=== PATIENT | female | born 1940 | race Caucasian/White ===

== ENCOUNTER → 2016-11-15 | Outpatient (CLI) | payer MEDICARE, BC ==
--- NOTE | 2016-11-16 11:43 | MM ---
Reason for exam: screening (asymptomatic). Last mammogram was performed 1 year and 1 month ago. History: Patient is postmenopausal. Physical Findings: A clinical breast exam by your physician is recommended on an annual basis and results should be correlated with mammographic findings. MG 3D Screening Mammo W/Cad Bilateral CC and MLO view(s) were taken. Prior study comparison: October 15, 2015, bilateral MG screening mammo w CAD. November 11, 2013, bilateral digital screening mammo w/CAD. There are scattered fibroglandular densities. No significant changes when compared with prior studies. ASSESSMENT: Benign, BI-RAD 2 RECOMMENDATION: Routine screening mammogram of both breasts in 1 year.
== END | disposition home or self-care (01) ==
LOC: RADMAMWWP 12:35
PROVIDERS: ATTEND Family Medicine
DX: Z12.31 Encounter for screening mammogram for malignant neoplasm of breast (principal)
CPT/HCPCS: 77063; G0202

== ENCOUNTER → 2017-11-16 | Outpatient (CLI) | payer MEDICARE, BC ==
--- NOTE | 2017-11-16 16:33 | BD ---
EXAMINATION TYPE: MG DEXA axial skeleton. DATE OF EXAM: 11/16/2017 CLINICAL HISTORY: 77-year-old female osteoporosis, postmenopausal screening Height: 64 inches Weight: 170 FRAX RISK QUESTIONS: Alcohol (3 or more units per day): no Family History (Parent hip fracture): no Glucocorticoids (More than 3mos): topical steroid cream on & off for over 30 years (Ex: prednisone, prednisolone, methylprednisolone, dexamethasone, and hydrocortisone). History of Fracture in Adulthood: no Secondary Osteoporosis: 1. Type 1 Diabetes: no 2. Hyperthyroidism: no 3. Menopause before 45: no 4. Malnutrition: no 5. Chronic liver disease: no Rheumatoid Arthritis: no Current Tobacco Use: no RISK FACTORS HISTORY OF: Family History of Osteoporosis: not documented Active: yes Diet low in dairy products/other sources of calcium: no Postmenopausal woman: yes Take estrogen and/or progesterone medications: no Lost more than 2 inches in height since high school: no Frequent falls: no Poor Health: no Hyperparathyroidism: no Adrenal Insufficiency: no MEDICATIONS: Prednisone or other steroids: topical steroids on & off How Long: over 30 years Thyroid Medications: yes Which medication: Synthroid How Long: over 40 years Osteoporosis Medications: no Additional Medications: Vitamin D & Calcium Additional History: right knee replacement EXAM MEASUREMENTS: Bone mineral densitometry was performed using the [employer] System. Bone mineral density as measured about the Lumbar spine is: ----- L1-L4(G/cm2): 0.981 T Score Values are as follows: ----- L2: -1.7 ----- L3: -1.5 ----- L4: -2.0 ----- L1-L4: -1.7 Bone mineral density has: Decreased -6.3% since study of: 11/11/2013 Bone mineral density about the R hip (g/cm2): 0.755 Bone mineral density about the L hip (g/cm2): 0.792 T Score values are as follows: -----R Neck: -2.0 -----L Neck: -1.8 -----R Total: -1.1 -----L Total: -0.5 Bone mineral density has: Decreased -4.7% since study of: 11/11/2013 IMPRESSION: Osteopenia (T Score between -2.5 and -1). There is slightly increased risk of fracture and the patient may be considered for treatment. Re-Screen 2-5 years. NOTE: T-SCORE=SD OF THE YOUNG ADULT MEAN.
--- NOTE | 2017-11-17 11:37 | MM ---
Reason for exam: screening (asymptomatic). Last mammogram was performed 1 year ago. History: Patient is postmenopausal. Physical Findings: A clinical breast exam by your physician is recommended on an annual basis and results should be correlated with mammographic findings. MG 3D Screening Mammo W/Cad Bilateral CC and MLO view(s) were taken. Prior study comparison: November 15, 2016, bilateral MG 3d screening mammo w/cad. October 15, 2015, bilateral MG screening mammo w CAD. The breast tissue is heterogeneously dense. This may lower the sensitivity of mammography. No significant changes when compared with prior studies. ASSESSMENT: Benign, BI-RAD 2 RECOMMENDATION: Routine screening mammogram of both breasts in 1 year.
== END | disposition home or self-care (01) ==
LOC: RADMAMWWP 12:44
PROVIDERS: ATTEND Family Medicine
DX: Z12.31 Encounter for screening mammogram for malignant neoplasm of breast (principal); M85.80 Other specified disorders of bone density and structure, unspecified site
CPT/HCPCS: 77063; 77067; 77080

== ENCOUNTER → 2018-02-26 | Outpatient (CLI) | payer MEDICARE, BC ==
--- NOTE | 2018-02-26 12:54 | XR ---
EXAMINATION TYPE: XR spine complete AP and Lat DATE OF EXAM: 02/26/2018 COMPARISON: NONE HISTORY: 77-year-old female back pain, arthritic pain from upper back and tailbone area for a few mon ths. Dorsalgia. TECHNIQUE: 10 views FINDINGS: Cervical spine: No predental space widening or prevertebral soft tissue swelling. Alignment is maintained. Normal odo ntoid view. Scattered facet and uncovertebral joint uropathy throughout. Thoracic spine: 12 rib-bearing thoracic vertebral bodies. Moderate endplate spondylosis especially in the mid thoraci c spine with accentuated thoracic kyphosis here. There is endplate sclerosis and some vacuum phenomen on with disc space narrowing. Vertebral body heights are maintained. Alignment is preserved. Lumbar spine: 5 lumbar type vertebral bodies. There is a grade 2 anterolisthesis at L4-L5 and facet arthropathy mid to lower lumbar spine. Moderate degenerative disc interspace narrowing at L4-L5. Vertebral body heig hts are maintained. IMPRESSION: 1. Cervical spine: Mild to moderate uncovertebral joint and facet arthropathy. No malalignment. 2. Thoracic spine: Moderate disc/endplate degenerative change especially in the mid thoracic spine wi th an accentuated kyphosis. No vertebral compression collapse or malalignment. 3. Lumbar spine: Grade 2 anterolisthesis at L4-L5. This could be on a degenerative basis or secondary to bilateral L4 pars defects. Facet arthropathy mid to lower lumbar spine and moderate degenerative disc disease L4-L5. No vertebral compression collapse.
== END ==
LOC: RADXRMAIN 10:31
PROVIDERS: ATTEND Nurse Practitioner
DX: M43.16 Spondylolisthesis, lumbar region (principal); M51.36 Other intervertebral disc degeneration, lumbar region; M46.92 Unspecified inflammatory spondylopathy, cervical region; M46.96 Unspecified inflammatory spondylopathy, lumbar region; M40.294 Other kyphosis, thoracic region
CPT/HCPCS: 72082

== ENCOUNTER → 2018-12-10 | Outpatient (CLI) | payer MEDICARE, BC ==
--- NOTE | 2018-12-10 11:36 | US ---
EXAMINATION TYPE: US carotid duplex BILAT DATE OF EXAM: 12/10/2018 COMPARISON: NONE CLINICAL HISTORY: 78-year-old female R41.3 amnesia. TECHNIQUE: Carotid duplex ultrasound examination. Indirect Doppler criteria was utilized. FINDINGS: EXAM MEASUREMENTS: RIGHT: Peak Systolic Velocity (PSV) cm/sec ----- Right CCA: 79.8 ----- Right ICA: 80.5 ----- Right ECA: 101.2 ICA/CCA ratio: 1.0 RIGHT: End Diastole cm/sec ----- Right CCA: 16.5 ----- Right ICA: 24.8 ----- Right ECA: 15.4 LEFT: Peak Systolic Velocity (PSV) cm/sec ----- Left CCA: 94.7 ----- Left ICA: 100.0 ----- Left ECA: 95.0 ICA/CCA ratio: 1.1 LEFT: End Diastole cm/sec ----- Left CCA: 24.6 ----- Left ICA: 30.9 ----- Left ECA: 14.6 VERTEBRALS (direction of flow): Right Vertebral: Antegrade Left Vertebral: Antegrade Rhythm: Normal Minimal atherosclerotic changes with no significant velocity increases. IMPRESSION: No hemodynamically significant stenosis appreciated in either internal carotid artery. Criteria for Assigning % of Stenosis / Diameter reduction (Estimation based on the indirect measurements of the internal carotid artery velocities (ICA PSV). 1. Normal (no stenosis)=ICA PSV < 125 cm/s: ratio < 2.0: ICA EDV<40 cm/s. 2. Less than 50% stenosis=ICA PSV < 125 cm/s: ratio < 2.0: ICA EDV<40 cm/s. 3. 50 to 69% stenosis=ICA PSV of 125 to 230 cm/s: ration 2.0 ? 4.0: ICA EDV 40-100 cm/s. 4. Greater than 70% stenosis to near occlusion= ICA PSV > 230 cm/s: ratio > 4.0: ICA EDV > 100 cm/s. 5. Near occlusion= ICA PSV velocities may be low or undetectable: variable ratio and ICA EDV. 6. Total occlusion=unable to detect flow.
--- NOTE | 2018-12-12 11:40 | MM ---
Reason for exam: screening (asymptomatic). Last mammogram was performed 1 year and 1 month ago. History: Patient is postmenopausal. Physical Findings: A clinical breast exam by your physician is recommended on an annual basis and results should be correlated with mammographic findings. MG 3D Screening Mammo W/Cad Bilateral CC and MLO view(s) were taken. Prior study comparison: November 16, 2017, bilateral MG 3d screening mammo w/cad. November 15, 2016, bilateral MG 3d screening mammo w/cad. There are scattered fibroglandular densities. No significant changes when compared with prior studies. ASSESSMENT: Negative, BI-RAD 1 RECOMMENDATION: Routine screening mammogram of both breasts in 1 year.
== END ==
LOC: RADMAMWWP 09:52
PROVIDERS: ATTEND Family Medicine
DX: R41.3 Other amnesia (principal); Z12.31 Encounter for screening mammogram for malignant neoplasm of breast
CPT/HCPCS: 77063; 77067; 93880

== ENCOUNTER → 2019-06-13 | Outpatient (CLI) | payer MEDICARE, BC ==
--- NOTE | 2019-06-13 15:25 | XR ---
EXAMINATION TYPE: XR thoracic spine complete DATE OF EXAM: 06/13/2019 Comparison: 02/26/2018 Clinical History: 78-year-old female R20.2 M54.6 with chronic pain Findings: 12 rib-bearing thoracic vertebral bodies. Pedicles are visualized. Accentuated mid thoracic kyphosis with moderate degenerative disc disease and endplate spondylosis midthoracic spine. Vertebral body he ights are preserved and alignment is maintained. Impression: Similar moderate degenerative disc disease mid thoracic spine with accentuated mid thoracic kyphosis. No vertebral compression collapse or malalignment.
--- NOTE | 2019-06-13 16:36 | XR ---
EXAMINATION TYPE: XR cervical spine comp DATE OF EXAM: 06/13/2019 COMPARISON: 02/26/2018 HISTORY: 78-year-old female chronic pain without injury TECHNIQUE: 5 views FINDINGS: Uncovertebral joint arthropathy lower cervical spine. Scattered facet arthropathy. On the left, this results in mild to moderate bony neuroforaminal narrowing at C3-C4. On the right, this results in mod erate bony neuroforaminal narrowing at C2-C3 and C3-C4. No predental space widening or prevertebral s oft tissue swelling. Alignment is maintained. Normal odontoid view. IMPRESSION: 1. No malalignment. 2. Facet arthropathy especially in the upper to mid cervical spine with moderate neuroforaminal narro wing on the right at C2-C3 and C3-C4. Mild to moderate neuroforaminal narrowing on the left at C3-C4.
== END | disposition home or self-care (01) ==
LOC: RADXRMAIN 14:21
PROVIDERS: ATTEND Family Medicine
DX: M51.34 Other intervertebral disc degeneration, thoracic region (principal); M40.294 Other kyphosis, thoracic region; M48.02 Spinal stenosis, cervical region; M46.92 Unspecified inflammatory spondylopathy, cervical region; R20.2 Paresthesia of skin
CPT/HCPCS: 72050; 72072

== ENCOUNTER → 2021-02-16 | Outpatient (CLI) | payer MEDICARE, BC ==
--- NOTE | 2021-02-16 15:08 | XR ---
EXAMINATION TYPE: XR Hip Complete RT DATE OF EXAM: 02/16/2021 COMPARISON: NONE HISTORY: 80-year-old with right hip pain that radiates down the leg. No history of fall. TECHNIQUE: AP and frog lateral views of the right hip were obtained. FINDINGS: No evidence of acute fracture or dislocation of the right hip. Moderate osteoarthritis of t he right hip with superior joint space narrowing and subchondral sclerosis of the acetabulum. Degenerative changes of the pubic symphysis with narrowing and subchondral sclerosis. IMPRESSION: 1. No evidence of fracture or dislocation of the right hip. Osteoarthritic degenerative changes of th e right hip is moderate. 2. Degenerative changes of the pubic symphysis.
--- NOTE | 2021-02-16 15:39 | XR ---
EXAMINATION TYPE: XR lumbosacral spine min 4V DATE OF EXAM: 02/16/2021 CLINICAL HISTORY: Lower back pain TECHNIQUE: Frontal, lateral, and oblique images of the lumbar spine are obtained. COMPARISON: None FINDINGS: There are 5 nonrib-bearing lumbar type vertebral bodies. No loss of vertebral body height t o suggest acute compression fracture. Surgical clips in the right paravertebral soft tissues. The fac ets are in alignment with degenerative changes. There is maintenance of the normal lumbar lordosis. T here is grade 2 anterolisthesis of L4 on L5 with moderate to severe intervertebral disc space narrowi ng at this level. There is minimal anterolisthesis of L5 on S1. Degenerative changes of the facets ar e diffuse. Atherosclerotic abdominal aorta. IMPRESSION: 1. No loss of vertebral body height to suggest acute compression fracture. 2. Grade 2 anterolisthesis of L4 on L5 with moderate to severe intervertebral disc space narrowing. F indings are stable. 3. Multilevel degenerative changes of the facets.
== END | disposition home or self-care (01) ==
LOC: RADXRMAIN 14:40
PROVIDERS: ATTEND Family Medicine
DX: M51.36 Other intervertebral disc degeneration, lumbar region (principal); M25.551 Pain in right hip; M54.41 Lumbago with sciatica, right side
CPT/HCPCS: 72110; 73502

== ENCOUNTER → 2021-05-24 | Outpatient (CLI) | payer MEDICARE, BC ==
--- NOTE | 2021-05-25 12:31 | MM ---
Reason for exam: screening (asymptomatic). Last mammogram was performed 1 year and 2 months ago. History: Patient is postmenopausal. Took hormonal contraceptives for 5 years. Physical Findings: A clinical breast exam by your physician is recommended on an annual basis and results should be correlated with mammographic findings. MG 3D Screening Mammo W/Cad Bilateral CC and MLO view(s) were taken. Prior study comparison: March 09, 2020, bilateral MG 3d screening mammo w/cad. December 10, 2018, bilateral MG 3d screening mammo w/cad. There are scattered fibroglandular densities. There is no discrete abnormality. ASSESSMENT: Negative, BI-RAD 1 RECOMMENDATION: Routine screening mammogram of both breasts in 1 year.
== END | disposition home or self-care (01) ==
LOC: RADMAMWWP 10:58
PROVIDERS: ATTEND Family Medicine
DX: Z12.31 Encounter for screening mammogram for malignant neoplasm of breast (principal)
CPT/HCPCS: 77063; 77067

== ENCOUNTER → 2022-05-12 | Outpatient (CLI) | payer MEDICARE, BC ==
--- NOTE | 2022-05-12 11:00 | XR ---
EXAMINATION TYPE: XR shoulder complete RT DATE OF EXAM: 05/12/2022 COMPARISON: NONE HISTORY: Pain TECHNIQUE: Shoulder examined in 3 projections FINDINGS: The humeral head articulates with the glenoid. The acromio-clavicular junction is normal. No acute fractures or dislocations are evident. A follow up study can be performed 7-10 days from acute trauma for continued pain. IMPRESSION: 1. No acute osseous abnormality 3 view right Shoulder
== END | disposition home or self-care (01) ==
LOC: RADXRMAIN 10:05
PROVIDERS: ATTEND Registered Nurse
DX: M25.511 Pain in right shoulder (principal)

== ENCOUNTER → 2022-05-30 | Outpatient (CLI) | payer MEDICARE, BC ==
--- NOTE | 2022-05-30 11:23 | BD ---
EXAMINATION TYPE: Axial Bone Density DATE OF EXAM: 05/30/2022 COMPARISON: 11-16-17 CLINICAL HISTORY: 81 years year old Female. ICD-10 CODE: [id number] HIP/SPINE Height: 63.25IN Weight: 155 FRAX RISK QUESTIONS: Secondary Osteoporosis: RISK FACTORS HISTORY OF: Surgery to Spine): LUMBAR SURGERY When: 2020 Family History of Osteoporosis: YES Active: YES Postmenopausal woman: YES MEDICATIONS: Thyroid Medications: Which medication: ARMOUR How Lon YEARS Additional Medications: CALCIUM, VITAMIN D Additional History: RTKA, [place] [facility] EXAM MEASUREMENTS: Bone mineral densitometry was performed using the [employer] System. Bone mineral density about the R hip (g/cm2): 0.816 Bone mineral density about the L hip (g/cm2): 0.916 T Score values are as follows: -----R Neck: -2.2 -----L Neck: -2.0 -----R Total: -1.5 -----L Total: -0.7 Bone mineral density has: Decreased -4.3% since study of: 11-16-17 FRAX%s: The graph provided illustrates a 17% chance for a major osteoporotic fx and a 5.6% chance for the hips probability for fx in 10 years time. IMPRESSION: Osteopenia (T Score between -2.5 and -1). There is slightly increased risk of fracture and the patient may be considered for treatment. Re-Screen 2-5 years. NOTE: T-SCORE=SD OF THE YOUNG ADULT MEAN.
--- NOTE | 2022-05-31 09:14 | MM ---
Reason for Exam: Screening (asymptomatic). Last screening mammogram was performed 12 month(s) ago. Patient History: Menarche at age 12. First Full-Term at age 23. Postmenopausal. Patient used Hormonal Contraceptives for 5 years. Risk Values: Sho 5 year model risk: 1.4%. NCI Lifetime model risk: 2.1%. Prior Study Comparison: 12/10/2018 Bilateral Screening Mammogram, [facility]. 03/09/2020 Bilateral Screening Mammogram, [facility]. 05/24/2021 Bilateral Screening Mammogram, [facility]. Tissue Density: There are scattered fibroglandular densities. Findings: Analyzed By CAD. There is no suspicious group of microcalcifications or new suspicious mass in either breast. Overall Assessment: Benign, BI-RAD 2 Management: Screening Mammogram of both breasts in 1 year. A clinical breast exam by your physician is recommended on an annual basis and results should be correlated with mammographic findings. Electronically signed and approved by: Reinaldo Harvey M.D. Radiologis
== END | disposition home or self-care (01) ==
LOC: RADMAMWWP 10:14
PROVIDERS: ATTEND Family Medicine
DX: Z12.31 Encounter for screening mammogram for malignant neoplasm of breast (principal); Z13.820 Encounter for screening for osteoporosis
CPT/HCPCS: 77063; 77067; 77080

== ENCOUNTER → 2022-11-03 | Outpatient (CLI) | payer MEDICARE, BC ==
--- NOTE | 2022-11-03 17:07 | XR ---
EXAMINATION TYPE: XR cervical spine 6 views comp DATE OF EXAM: 11/03/2022 COMPARISON: 06/13/2019 HISTORY: 82-year-old female pain in upper arms and shoulders for 8 months. FINDINGS: No predental space widening or prevertebral soft tissue swelling. Limited odontoid view. Uncovertebra l joint and facet arthropathy mid to lower cervical spine. At least mild degenerative disc disease C6 /C7. The cervicothoracic junction is obscured by the patient's shoulders and not assessed. Otherwise, remaining alignment is maintained. On the right, there is mild bony neuroforaminal narrowing at C2-C 3 and C3-C4. On the left, there is mild bony neuroforaminal narrowing at C3-C4. IMPRESSION: Cervicothoracic junction is obscured by the patient's shoulders and not assessed. Scattered facet and uncovertebral joint arthropathy. At least mild degenerative disc disease C6-C7.
--- NOTE | 2022-11-03 17:14 | XR ---
EXAMINATION TYPE: XR shoulder complete BILAT DATE OF EXAM: 11/03/2022 COMPARISON: NONE HISTORY: 82-year-old female M54.2 M25.512 M25.511 TECHNIQUE: 3 views each side FINDINGS: Right: There is mild degenerative spurring at the glenohumeral joint. There is bony irregularity at the grea ter tuberosity. Somewhat narrowed subacromial space on the Grashey view. Mild degenerative change at the AC joint. No acute fracture, subluxation, dislocation. Left: Moderate degenerative change at the AC joint. Prominent bony irregularity of the greater tuberosity. Minimal inferior humeral head spurring is present. No acute fracture, subluxation, dislocation. IMPRESSION: 1. Right shoulder: Mild glenohumeral joint and AC joint OA. Irregular greater tuberosity and somewhat narrowed appearance to the subacromial space. There may be an underlying rotator cuff tear. MSK ultr asound or MRI if clinically indicated. 2. Left shoulder: More moderate left AC joint OA. Changes of chronic rotator cuff tendinopathy. No ac jame osseous abnormality seen.
== END | disposition home or self-care (01) ==
LOC: RADXRMAIN 14:53
PROVIDERS: ATTEND Family Medicine
DX: M19.011 Primary osteoarthritis, right shoulder (principal); M19.012 Primary osteoarthritis, left shoulder; M50.323 Other cervical disc degeneration at C6-C7 level; M47.812 Spondylosis without myelopathy or radiculopathy, cervical region; M99.71 Connective tissue and disc stenosis of intervertebral foramina of cervical region
CPT/HCPCS: 72050

== ENCOUNTER → 2023-11-30 | Outpatient (CLI) | payer MEDICARE, BC ==
[2023-11-30 12:58] LABS: African American GFR (CKD) 71 (>60 ml/min/1.73 sqM); Blood Urea Nitrogen 19 mg/dL (7-17); Non-African American GFR(CKD) 62 (>60 ml/min/1.73 sqM)
--- NOTE | 2023-12-01 16:18 | CT ---
EXAMINATION TYPE: CT urogram wo/w con DATE OF EXAM: 11/30/2023 COMPARISON: 06/15/2012 INDICATION: upper abdominal pain that radiates to the back DLP: 1673.10 mGycm, Automated exposure control for dose reduction was used. CONTRAST: 100ml mL of Isovue 300. Study performed TECHNIQUE: Axial images were obtained from above the diaphragm to the pubic rami in the axial plane a t 5 mm thick sections. Reconstructed images are reviewed on the computer in the coronal plane. FINDINGS: Limited CT sections are obtained the lung bases. The lung bases are clear. CT ABDOMEN: Liver: There is marked dilatation of the biliary tree within the liver. There may be a 6.1 x 5.4 cm m ass within the head of the pancreas. Body and tail of pancreas have a dilated pancreatic duct pancrea s is somewhat atrophic. Clinical consideration for pancreatic neoplasm is recommended Gallbladder is surgically absent. Vascular calcifications within the aorta. Vena cava is normal. The adrenal glands are normal. Spleen is unremarkable. Kidneys: There is symmetrical excretion. Ureters follow a normal caliber course and contour to the ur inary bladder. Urinary bladder appears unremarkable. No masses cysts or hydronephrosis of the kidneys are evident. Aorta: Vascular calcification is within the aorta. Inferior vena cava: Normal. CT PELVIS: Loops of bowel within the abdomen and pelvis are normal. This study is without oral contrast limi ting evaluation. Appendix: Normal as visualized. Urinary bladder: Normal. Genitourinary structures: Uterus and ovaries appear unremarkable. Osseous structures: No suspicious lytic or sclerotic lesions. Degenerative disc changes are present L 4-5. Pedicle screws are present on the right L4-5 IMPRESSION: 1. Large mass in the epigastric region appears to be located within the head of the pancreas and dis placing the liver. Marked biliary dilatation is present and there is pancreatic duct dilatation prese nt. Pancreatic neoplasm should be considered. 2. No suspicious renal or ureteral abnormality identified A [place] critical message alert has been initiated for Addy Mancera MD via the [employer] Critical Results System on 12/01/2023 4:13 PM. This message alert has been sent to Addy Mancera MD v ia the preferences provided by the clinician for the receipt of Radiology Critical Findings. Message ID [id number].
== END | disposition home or self-care (01) ==
LOC: RADCTMAIN 11:39
PROVIDERS: ATTEND Urology
DX: K83.8 Other specified diseases of biliary tract (principal); K86.89 Other specified diseases of pancreas; R19.06 Epigastric swelling, mass or lump; R31.0 Gross hematuria; Z90.49 Acquired absence of other specified parts of digestive tract
CPT/HCPCS: 82565; 84520; 74178; 36415; 74400; Q9967

== ENCOUNTER → 2023-12-20 | Outpatient (CLI) | payer MEDICARE, BC ==
[2023-12-20 15:29] LABS: Carcinoembryonic Antigen <2.0 ng/mL (0.0-4.9)
[2023-12-20 15:43] LABS: ALT 142 U/L (8-44); AST 164 U/L (13-35); Albumin 3.4 g/dL (3.8-4.9); Albumin/Globulin Ratio 1.62 Ratio (1.60-3.17); Alkaline Phosphatase 1000 U/L (41-126); BUN/Creat Ratio 21.62 Ratio (12.00-20.00); Blood Urea Nitrogen 17.3 mg/dL (9.0-27.0); Calcium 8.8 mg/dL (8.7-10.3); Carbon Dioxide 21.8 mmol/L (21.6-31.8); Chloride 99 mmol/L (96-109); Globulin 2.1 g/dL (1.6-3.3); Glucose 127 mg/dL (70-110); Potassium 4.4 mmol/L (3.5-5.5); Sodium 133 mmol/L (135-145); Total Bilirubin 5.1 mg/dL (0.3-1.2); Total Protein 5.5 g/dL (6.2-8.2)
== END | disposition home or self-care (01) ==
LOC: LABWHC1 08:55
PROVIDERS: ATTEND Surgery Surgical Oncology
DX: C25.0 Malignant neoplasm of head of pancreas (principal); R73.09 Other abnormal glucose
CPT/HCPCS: 36415; 80053; 82378; 83036; 86301

== ENCOUNTER → 2023-12-30 | Outpatient (CLI) | payer MEDICARE, BC ==
[2023-12-30 22:30] LABS: Basophils # (A) 0.08 X 10*3/uL (0.00-0.10); Basophils % (A) 0.9 %; Eosinophils # (A) 0.11 X 10*3/uL (0.04-0.35); Eosinophils % (A) 1.2 %; HCT 26.4 % (37.2-46.3); Lymphocytes # (A) 1.23 X 10*3/uL (0.90-5.00); Lymphocytes % (A) 13.4 %; MCH 29.4 pg (27.0-32.0); MCHC 30.3 g/dL (32.0-37.0); MCV 97.1 FL (80.0-97.0); Mean Platelet Volume 11.6 FL (9.5-12.2); Monocytes # (A) 0.74 X 10*3/uL (0.20-1.00); Monocytes % (A) 8.1 %; NRBC Per 100 WBC 0 X 10*3/uL (0.00-0.01); Neutrophils # (A) 6.97 X 10*3/uL (1.80-7.70); Neutrophils % (A) 75.7 %; Platelet Count 269 X 10*3/uL (140-440); RBC 2.72 X 10*6/uL (4.10-5.20); RDW 16.5 % (11.5-14.5); WBC 9.19 X 10*3/uL (4.50-10.00)
[2023-12-30 22:56] LABS: ALT 70 U/L (8-44); AST 72 U/L (13-35); Albumin 3.3 g/dL (3.8-4.9); Albumin/Globulin Ratio 1.57 Ratio (1.60-3.17); Alkaline Phosphatase 843 U/L (41-126); Blood Urea Nitrogen 14.8 mg/dL (9.0-27.0); Calcium 8.8 mg/dL (8.7-10.3); Carbon Dioxide 22.3 mmol/L (21.6-31.8); Chloride 100 mmol/L (96-109); Globulin 2.1 g/dL (1.6-3.3); Glucose 142 mg/dL (70-110); Potassium 4.4 mmol/L (3.5-5.5); Sodium 134 mmol/L (135-145); Total Bilirubin 2.7 mg/dL (0.3-1.2); Total Protein 5.4 g/dL (6.2-8.2)
== END | disposition home or self-care (01) ==
LOC: LABWHC1 11:20
PROVIDERS: ATTEND Internal Medicine Hematology
DX: C25.9 Malignant neoplasm of pancreas, unspecified (principal); C78.7 Secondary malignant neoplasm of liver and intrahepatic bile duct
CPT/HCPCS: 36415; 80053; 85025